=== PATIENT | female | born 1985 | race Hispanic/Latino ===

== ENCOUNTER 2018-09-02 00:03 | Emergency (ER) | payer SELFPAY ==
[2018-09-02] MEDS ORDERED: HYDROCODONE/APAP 10/325 TAB ONE (00:57)
--- NOTE | 2018-09-02 01:07 | ER ---
Nurse's Notes [facility] Name: Lore Singh Age: 32 yrs Sex: Female : 1985 Arrival Date: 09/02/2018 Time: 00:06 Bed 14 Private MD: Diagnosis: Fall due to bumping against object;Sprain of unspecified part of right wrist and hand Presentation: 09/02 00:17 Presenting complaint: Patient states: I accidentally tripped off while we are moving rr5 things, then I hold up my right hand on the ground. Transition of care: patient was not received from another setting of care. Onset of symptoms was September 02, 2018. Risk Assessment: Do you want to hurt yourself or someone else? Patient reports no desire to harm self or others. Initial Sepsis Screen: Does the patient meet any 2 criteria? No. Patient's initial sepsis screen is negative. Does the patient have a suspected source of infection? No. Patient's initial sepsis screen is negative. Note limited movement on her right hand and wrist. positive mild swelling at right palm. Care prior to arrival: elevation. 00:17 Method Of Arrival: Ambulatory rr5 00:17 Acuity: PRASHANTH 3 rr5 Triage Assessment: 00:17 General: Appears in no apparent distress. uncomfortable, Behavior is calm, cooperative, rr5 appropriate for age. Injury Description: swelling right palm due to fall. 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 - Social history:: Smoking status: Patient uses tobacco products, smokes one-half pack cigarettes per day. - Family history:: not pertinent. - Ebola Screening: : Patient negative for fever greater than or equal to 101.5 degrees Fahrenheit, and additional compatible Ebola Virus Disease symptoms Patient denies exposure to infectious person Patient denies travel to an Ebola-affected area in the 21 days before illness onset. Screenin:18 Abuse screen: Denies threats or abuse. Denies injuries from another. Nutritional rr5 screening: No deficits noted. Tuberculosis screening: No symptoms or risk factors identified. Fall Risk Fall in past 12 months (25 points). Total Morrison Fall Scale indicates Low Risk Score (25-44 pts). Fall prevention measures have been instituted. Side Rails Up X 2 Frequent Obs/Assesments occuring As available Patient and Family Educated on Fall Prevention Program and strategies. Assessment: 00:17 General: Appears in no apparent distress. uncomfortable, Behavior is calm, cooperative, rr5 appropriate for age. Pain: Complains of pain in right hand Pain does not radiate. Pain currently is 6 out of 10 on a pain scale. Quality of pain is described as aching, Pain began suddenly, Is intermittent. Neuro: Level of Consciousness is awake, alert, obeys commands, Oriented to person, place, time, situation, Appropriate for age. Cardiovascular: Capillary refill < 3 seconds Patient's skin is warm and dry. Respiratory: Airway is patent Respiratory effort is even, unlabored, Respiratory pattern is regular, symmetrical. GI: No signs and/or symptoms were reported involving the gastrointestinal system. : No signs and/or symptoms were reported regarding the genitourinary system. EENT: No signs and/or symptoms were reported regarding the EENT system. Derm: Skin is intact, Skin temperature is warm. Musculoskeletal: Capillary refill < 3 seconds, Range of motion: limited in right hand and wrist Swelling present in right palm. 00:35 Reassessment: Patient appears in no apparent distress at this time. Patient is alert, rr5 oriented x 3, equal unlabored respirations, skin warm/dry/pink. ice compress aaplied. 01:20 Reassessment: Patient appears in no apparent distress at this time. Patient is alert, rr5 oriented x 3, equal unlabored respirations, skin warm/dry/pink. discharge instruction and prescription given and explained without complaints made. Vital Signs: 00:17 BP 118 / 73; Pulse 88; Resp 17; Temp 98.3; Pulse Ox 99% ; Weight 63.5 kg; Height 5 ft. rr5 7 in. (170.18 cm); Pain 6/10; 00:17 Body Mass Index 21.93 (63.50 kg, 170.18 cm) rr5 ED Course: 00:06 Patient arrived in ED. am2 00:11 Tyler Magdaleno MD is Attending Physician. gisella 00:17 Patel York, RN is Primary Nurse. rr5 00:17 Arm band placed on left wrist. rr5 00:18 Patient has correct armband on for positive identification. Bed in low position. Call rr5 light in reach. Side rails up X 1. Pulse ox on. NIBP on. 00:23 Triage completed. rr5 00:47 X-ray completed. Portable x-ray completed in exam room. Patient tolerated procedure kw well. 00:49 Wrist Right 3 View XRAY In Process Unspecified. EDMS 00:55 Urine Culture Sent. rr5 01:06 Yuan Dueñas MD is Referral Physician. gisella 01:15 Velcro wrist splint applied to right wrist. rr5 01:15 No provider procedures requiring assistance completed. Patient did not have IV access rr5 during this emergency room visit. Administered Medications: 00:50 Drug: [place] 10 mg-325 mg 1 tabs Route: PO; rr5 Outcome: 01:06 Discharge ordered by . gisella 01:20 Discharged to home ambulatory. rr5 01:20 Condition: stable 01:20 Discharge instructions given to patient, Instructed on discharge instructions, follow up and referral plans. medication usage, Demonstrated understanding of instructions, follow-up care, medications, Prescriptions given X 2. 01:21 Patient left the ED. rr5 Signatures: Dispatcher [employer] [facility] Tyler Magdaleno MD MD cha Whitley, Kimberlee kw Moreno, Amanda am2 Roque, Raymond, RN RN rr5
--- NOTE | 2018-09-02 01:08 | EDPHYS ---
Physician Documentation [facility] Name: Lore Singh Age: 32 yrs Sex: Female : 1985 Arrival Date: 09/02/2018 Time: 00:06 Bed 14 Private MD: TANISHA Physician Tyler Magdaleno HPI: 09/02 00:17 This 32 yrs old Female presents to ER via Unassigned with complaints of Hand gisella Injury, Wrist Pain. 00:17 The patient or guardian reports decreased range of motion, injury, pain. The complaints gisella affect the right hand diffusely. Onset: The symptoms/episode began/occurred just prior to arrival. 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 - Social history:: Smoking status: Patient uses tobacco products, smokes one-half pack cigarettes per day. - Family history:: not pertinent. - Ebola Screening: : Patient negative for fever greater than or equal to 101.5 degrees Fahrenheit, and additional compatible Ebola Virus Disease symptoms Patient denies exposure to infectious person Patient denies travel to an Ebola-affected area in the 21 days before illness onset. ROS: 00:21 Constitutional: Negative for fever, chills, and weight loss, Eyes: Negative for injury, gisella pain, redness, and discharge, ENT: Negative for injury, pain, and discharge, Neck: Negative for injury, pain, and swelling, Cardiovascular: Negative for chest pain, palpitations, and edema, Respiratory: Negative for shortness of breath, cough, wheezing, and pleuritic chest pain, Abdomen/GI: Negative for abdominal pain, nausea, vomiting, diarrhea, and constipation, Back: Negative for injury and pain, : Negative for injury, bleeding, discharge, and swelling, Skin: Negative for injury, rash, and discoloration, Neuro: Negative for headache, weakness, numbness, tingling, and seizure, Psych: Negative for depression, anxiety, suicide ideation, homicidal ideation, and hallucinations, Allergy/Immunology: Negative for hives, rash, and allergies, Endocrine: Negative for neck swelling, polydipsia, polyuria, polyphagia, and marked weight changes, Hematologic/Lymphatic: Negative for swollen nodes, abnormal bleeding, and unusual bruising. 00:21 MS/extremity: Positive for decreased range of motion, pain, tenderness, of the medial aspect of right hand, dorsal aspect of right wrist, palmar aspect of proximal phalanx of right thumb and Right first web space. Exam: 00:21 Constitutional: This is a well developed, well nourished patient who is awake, alert, gisella and in no acute distress. Head/Face: Normocephalic, atraumatic. Eyes: Pupils equal round and reactive to light, extra-ocular motions intact. Lids and lashes normal. Conjunctiva and sclera are non-icteric and not injected. Cornea within normal limits. Periorbital areas with no swelling, redness, or edema. ENT: Nares patent. No nasal discharge, no septal abnormalities noted. Tympanic membranes are normal and external auditory canals are clear. Oropharynx with no redness, swelling, or masses, exudates, or evidence of obstruction, uvula midline. Mucous membranes moist. Neck: Trachea midline, no thyromegaly or masses palpated, and no cervical lymphadenopathy. Supple, full range of motion without nuchal rigidity, or vertebral point tenderness. No Meningismus. Chest/axilla: Normal chest wall appearance and motion. Nontender with no deformity. No lesions are appreciated. Cardiovascular: Regular rate and rhythm with a normal S1 and S2. No gallops, murmurs, or rubs. Normal PMI, no JVD. No pulse deficits. Respiratory: Lungs have equal breath sounds bilaterally, clear to auscultation and percussion. No rales, rhonchi or wheezes noted. No increased work of breathing, no retractions or nasal flaring. Abdomen/GI: Soft, non-tender, with normal bowel sounds. No distension or tympany. No guarding or rebound. No evidence of tenderness throughout. Back: No spinal tenderness. No costovertebral tenderness. Full range of motion. Skin: Warm, dry with normal turgor. Normal color with no rashes, no lesions, and no evidence of cellulitis. Neuro: Awake and alert, GCS 15, oriented to person, place, time, and situation. Cranial nerves II-XII grossly intact. Motor strength 5/5 in all extremities. Sensory grossly intact. Cerebellar exam normal. Normal gait. Psych: Awake, alert, with orientation to person, place and time. Behavior, mood, and affect are within normal limits. 00:21 Musculoskeletal/extremity: ROM: limited active range of motion, limited passive range of motion, Circulation is intact in all extremities. Compartment Syndrome exam of affected extremity: is normal. DVT Exam: No signs of deep vein thrombosis. no pain, no swelling, no tenderness, negative Homans' sign noted on exam, no appreciated bluish discoloration, no erythema, no increased warmth. Vital Signs: 00:17 BP 118 / 73; Pulse 88; Resp 17; Temp 98.3; Pulse Ox 99% ; Weight 63.5 kg; Height 5 ft. rr5 7 in. (170.18 cm); Pain 6/10; 00:17 Body Mass Index 21.93 (63.50 kg, 170.18 cm) rr5 MDM: 00:11 Patient medically screened. [facility] 00:21 Data reviewed: vital signs, nurses notes, lab test result(s), radiologic studies. [facility] 09/02 00:23 Order name: Urine Culture [facility] 09/02 01:09 Order name: Urine Dipstick--Ancillary (enter results) [facility] 09/02 00:17 Order name: Wrist Right 3 View XRAY [facility] 09/02 01:09 Order name: Urine --Ancillary (enter results) [facility] 09/02 01:10 Order name: Urine Dipstick-Ancillary [facility] 09/02 00:17 Order name: Ice pack; Complete Time: 00:47 [facility] 09/02 00:17 Order name: Splint; Complete Time: 01:15 [facility] 09/02 00:23 Order name: Urine Dipstick-Ancillary (obtain specimen); Complete Time: 00:46 [facility] 09/02 00:23 Order name: Urine Test (obtain specimen); Complete Time: 00:46 [facility] Administered Medications: 00:50 Drug: [place] 10 mg-325 mg 1 tabs Route: PO; rr5 Disposition: 09/02/18 01:06 Discharged to Home. Impression: Fall due to bumping against object, Sprain of unspecified part of right wrist and hand. - Condition is Stable. - Discharge Instructions: Hand Contusion, Wrist Pain, Wrist Splint, Wrist Splint, [id number]-ok-[id number], Hand Contusion, [id number]-ac-[id number], Wrist Pain, [id number]-gi-[id number], Fall Prevention in the Home, Nrfn-al-Melu, Wrist Sprain. - Prescriptions for Ibuprofen 600 mg Oral Tablet - take 1 tablet by ORAL route every 8 hours As needed take with food; 21 tablet. Tylenol- Codeine #3 300-30 mg Oral Tablet - take 2 tablets by ORAL route every 6 hours As needed; 24 tablet. - Medication Reconciliation Form, Thank You Letter, Antibiotic Education, Prescription Opioid Use form. - Follow up: Private Physician; When: 2 - 3 days; Reason: Recheck today's complaints, Continuance of care, Re-evaluation by your physician. Follow up: Yuan Dueñas; When: 2 - 3 days; Reason: Recheck today's complaints, Re-evaluation by your physician. - Problem is new. - Symptoms have improved. Signatures: Dispatcher [employer] [facility] Tyler Magdaleno MD MD cha Roque, Raymond RN RN rr5 Corrections: (The following items were deleted from the chart) 00:49 00:18 Hand Right 3 View+RAD.RAD.BRZ ordered. [facility] 01:21 01:06 09/02/2018 01:06 Discharged to Home. Impression: Fall due to bumping against rr5 object; Sprain of unspecified part of right wrist and hand. Condition is Stable. Discharge Instructions: Hand Contusion, Wrist Pain, Wrist Splint, Wrist Splint, [id number]-pi-Qtmk, Hand Contusion, Uesw-lv-Drut, Wrist Pain, Kjqg-ng-Wcoq, Fall Prevention in the Home, Rffg-uz-Gfqx, Wrist Sprain. Prescriptions for Ibuprofen 600 mg Oral Tablet - take 1 tablet by ORAL route every 8 hours As needed take with food; 21 tablet, Tylenol-Codeine #3 300-30 mg Oral Tablet - take 2 tablets by ORAL route every 6 hours As needed; 24 tablet. and Forms are Medication Reconciliation Form, Thank You Letter, Antibiotic Education, Prescription Opioid Use. Follow up: Private Physician; When: 2 - 3 days; Reason: Recheck today's complaints, Continuance of care, Re-evaluation by your physician. Follow up: Yuan Dueñas; When: 2 - 3 days; Reason: Recheck today's complaints, Re-evaluation by your physician. Problem is new. Symptoms have improved. gisella
[2018-09-02 01:25] LABS: Urine Blood TRACE (NEG); Urine Glucose NEGATIVE (NEG); Urine Protein NEGATIVE (NEG)
--- NOTE | 2018-09-02 08:36 | RAD REPORT ---
EXAM DESCRIPTION: RAD - Wrist Right 3 View - 09/02/2018 12:52 am CLINICAL HISTORY: Right wrist pain status post injury FINDINGS: No fracture or dislocation is seen. If the patient continues to have symptoms to suggest a n occult fracture then a followup plain film series in 7 days would be recommended.
== END 2018-09-02 01:21 | disposition home or self-care (01) ==
LOC: ER 00:03
DX: S63.91XA Sprain of unspecified part of right wrist and hand, initial encounter (principal); W18.00XA Striking against unspecified object with subsequent fall, initial encounter; Y93.01 Activity, walking, marching and hiking; Y92.9 Unspecified place or not applicable; F17.210 Nicotine dependence, cigarettes, uncomplicated
CPT/HCPCS: 81003; 81025; 87086; 87088; 99284

== ENCOUNTER 2021-08-17 10:43 | Emergency (ER) | payer SELFPAY ==
--- OUTSIDE RECORDS SUMMARY | 2021-08-17 10:46 | XMS REPORT | Continuity of Care Document ---
:[address] [facility] t Address [address] [place] [address] Care Team Providers Name Role Phone Pcp, Does Not Have A Primary Care Physician Tery Luna Attending Clinician Trey BRAR Attending Clinician Unavailable Stephanie Kirby Attending Clinician Unavailable Trey WILKES Attending Clinician Unavailable BOB CHESTER Attending Clinician Unavailable DR Seven PAPPAS Attending Clinician Unavailable ROXI AGUIRRE Admitting Clinician Unavailable DR Seven PAPPAS Admitting Clinician Unavailable Payers Payer Name Policy Type Policy Number Effective Date Expiration Date S ource TP68 WOMEN'S [id number] 2019 00:00:00 HEALTH PROGRAM Advance Directives Directive Decision Effective Date Termination Date Comments Sour ce Yes N/A [facility] Problems Condition Condition Condition Status Onset Resolution Last Treating Co mments Source Name Details Category Date Date Treatment Clinician Date Other Other Disease Active Univers general general 9-24 ity of counseling [place] and advice 00 Me dical for for Branch contracept contracept ray ray management management Encounter Encounter [id number] Active 2020-09-27 for for 3-05 07:14:29 observatio observatio 00:00: n for n for 00 other other suspected suspected diseases diseases and and conditions conditions ruled out ruled out (Z03.89)On set: 27-Sep-2020 Surveillan Surveillan Disease Active Overview : Univers ce of ce of 08-11 Formattin ity of previously previously 00:00: g of this [place] prescribed prescribed 00 note Me dical contracept contracept might be Branch ray method ray method different from the original. ICD10 Diagnosis Term [employer] Specialist Utility Screening Screening Disease Active Overview: Univers for STD for STD 08-11 Formattin ity o f (sexually (sexually 00:00: g of this [place] transmitte transmitte 00 note Me dical d disease) d disease) might be Branch different from the original. ICD10 Diagnosis Term [employer] Utility History of History of Disease Active U will tubal tubal 08-11 ity of ligation ligation 00:00: [address] Generalize Generalize Disease Active U nivers d anxiety d anxiety 08-11 ity of disorder disorder 00:00: [address] Dysmenorrh Dysmenorrh Disease Active U will ea ea 08-11 ity of 00:00: [address] Allergies, Adverse Reactions, Alerts Allergy Allergy Status Severity Reaction(s) Onset Inactive Treating Comm ents Source Name Type Date Date Clinician NO KNOWN Drug Active Univers ALLERGIE Class ity of S [facility] Social History Social Habit Start Date Stop Date Quantity Comments Source History [facility] o f Alcohol [facility] [place] [facility] o f Alcohol Std [place] Medical Drinks Branch History [facility] University o f Alcohol Binge [place] Medic al [place] History of Smoker University of tobacco use [facility] Exposure to Not sure University of SARS-CoV-2 [facility] (event) [place] Alcohol intake 2021-04-18 2021-04-18 Current drinker of Un iversity of 00:00:00 00:00:00 alcohol (finding) [facility] Alcohol Comment 2014-08-09 2014-08-09 occasionally Univers ity of 00:00:00 00:00:00 [facility] Cigarettes smoked 2014-08-09 2014-08-09 Univers ity of current (pack per 00:00:00 00:00:00 [facility] ) - Reported Branch Tobacco use and 2014-08-09 2014-08-09 Never used Universit y of exposure 00:00:00 00:00:00 [facility] Sex Assigned At [birth year] Universit y of 00:00:00 00:00:00 [facility] Smoking Status Start Date Stop Date Source Tobacco smoking consumption [facility] Current every day smoker 2014-08-09 00:00:00 Uni versity of [facility] Medications Ordered Filled Start Stop Current Ordering Indication Dosage Frequency Signature Comments Components Source Medication Medication Date Date Medication? Clinician (SIG) Name Name ALPRAZolam 2020- No .5mg Take 0.5 Un silvia (XANAX) 0.5 9-24 09-24 mg by ity of mg tablet 09:22: 00:00 mouth as Roberto as 45 :00 needed. [facility] Branch DiphenhydrA Yes [id number] 50mg Diphenhydr MINE* 10-01 [id number] AMINE*; 50 08:47: mg PO/By 00 mouth for difficulyt sleeping Please take ONE (1) tablet by mouth at bedtime IF NEEDED for difficulty sleeping.D ischarge Medication SupplyStar t: 01-Oct-2020 Ordered: 01-Oct-2020 Lety Kirby HydrOXYzine Yes [id number] 25mg HydrOXYzin * - 200605 e*; 25 mg 15:51: PO/By 00 mouth for anxiety Please take ONE (1) tablet by mouth TWICE DAILY for anxiety IF NEEDED. If no anxiety, do not take.Disch arge Medication SupplyStar t: 30-Sep-2020 Ordered: 30-Sep-2020 Lety Kirby RisperiDONE Yes [id number] 1mg RisperiDON * 09-30 804745 E*; 1 mg 15:50: PO/By 00 mouth for mood stablizati on/clear thinking Please take ONE (1) tablet by mouth in the morning, and take ONE (1) tablet by mouth at bedtime.Gissell schultz Medication SupplyStar t: 30-Sep-2020 Ordered: 30-Sep-2020 Lety Kirby nt Contact 2020- Yes [id number] 15ml Contact Lens 3-07 [id number] Lens Solution 17:26: Solution; 00 Fill soufle cup or contact lens case with contact lens solution and, using clean hands, submerge contact lenses in solution for storage until next use. 15 ml Q1H PRN for storage of contact lensesStar t: 29-Sep-2020 Ordered: 29-Sep-2020 Kiya Garzon ntent RisperiDONE Yes [id number] .5mg RisperiDON NTE 4 mg 3-05 [id number] E; 0.5 mg PRN 07:19: PO PRN Risperido 00 q6hr for ne in 24 ___moderat hr period e agitation NTE 4 mg PRN Risperidon e in 24 hr period RoutineSta rt: 27-Sep-2020 Ordered: 27-Sep-2020 Stephanie Rodriguez Comments: NTE 4 mg PRN Risperidon e in 24 hr period Ibuprofen Yes [id number] 400mg Ibuprofen; NTE 2 400 3-05 [id number] 400 mg PO mg in 24 06:38: PRN q4hr hours 00 for Pain NTE 2400 mg in 24 hours RoutineSta rt: 27-Sep-2020 Ordered: 27-Sep-2020 Stephanie Rodriguez Comments: NTE 2400 mg in 24 hours Maalox Yes [id number] 30ml Maalox; 30 NTE 120ml 3-05 [id number] ml PO PRN in 24 06:38: q6hr for hours 00 GI upset NTE 120ml in 24 hours RoutineSta rt: 27-Sep-2020 Ordered: 27-Sep-2020 Stephanie Rodriguez Comments: NTE 120ml in 24 hours Milk of 2020-0 Yes [id number] 30ml Milk of NTE 120 Magnesia 3-05 [id number] Magnesia; mL in 24 06:38: 30 ml PO hours 00 PRN q4hr for Constipati on NTE 120 mL in 24 hours RoutineSta rt: 27-Sep-2020 Ordered: 27-Sep-2020 Stephanie Rodriguez Comments: NTE 120 mL in 24 hours Flu Vaccine Yes [id number] .5ml Flu This - ADULT 3-05 [id number] Vaccine - medicatio 06:37: ADULT; 0.5 n is to 00 ml IM be Daily for administe Flu red under prevention consent This of the medication patient is to be and is administer ONLY ed under available consent of between the April through and is September ONLY (during available the flu between season). April through September (during the flu season). RoutineSta rt: 27-Sep-2020 Ordered: 27-Sep-2020 Stephanie Rodriguez Comments: This medication is to be administer ed under consent of the patient and is ONLY available between April through September (during the flu season). Versed No [id number] 0 Versed 5 mg/mL 3-05 [id number] mg/mL injectable 04:31: injectable solution 48 solution; intramuscu lar onceQuanti ty: 0 Refills: 0Ordered: 27-Sep-2020 Bella Meneses eneric Substituti on Allowed Haldol 5 No [id number] 0 Haldol 5 mg/mL 3-05 [id number] mg/mL injectable 04:31: injectable solution 38 solution; intramuscu lar onceQuanti ty: 0 Refills: 0Ordered: 27-Sep-2020 Bella Meneses eneric Substituti on Allowed traMADOL 50 2017-07- No 50mg Take 1 Uni vers mg tablet 04-18 tablet by ity of 00:00: 00:00 mouth [place] 00 :00 every 6 Medical (six) Branch hours as needed for Pain (scale 4-6). amoxicillin 2020- No 1{tbl} Take 1 Tab Univers -clavulanat 01-22 by mouth ity of e 00:00: 00:00 every 12 [place] (AUGMENTIN) 00 :00 (twelve) Medi meera 875-125 mg hours. Branch per tablet codeine-gua 2020- No 5mL Take 5 mL Univers ifenesin 01-22 by mouth ity of (CHERATUSSI 00:00: 00:00 every 6 [place] AC) 00 :00 (six) Medical 10-100 mg/5 hours as Bran ch mL solution needed for Cough. Immunizations Ordered Filled Immunization Date Status Comments Sourc e Immunization Name Name SARS-COV-2 COVID-19 2021-03-26 [facility] 00:00:00 [facility] Td 2018-05-02 Completed [facility] 00:00:00 [facility] TDAP (ADACEL) 2006-08-04 Completed [facility] VACCINE 00:00:00 [facility] Vital Signs Vital Name Observation Time Observation Value Comments Source Systolic blood 2021-04-18 14:21:00 125 mm[Hg] [facility] Diastolic blood 2021-04-18 14:21:00 82 mm[Hg] [facility] Heart rate 2021-04-18 14:21:00 82 /min [facility] Body temperature 2021-04-18 14:21:00 36.39 [facility] Respiratory rate 2021-04-18 14:21:00 18 /min [facility] Body height 2021-04-18 14:21:00 170.2 cm [facility] Body weight 2021-04-18 14:21:00 55.611 kg [facility] BMI 2021-04-18 14:21:00 19.20 kg/m2 [facility] Procedures Procedure Date / Time Performing Clinician Source Performed GC & CHLAMYDIA 2021-04-18 14:40:00 Kimberly Brar [facility] AMPLIFIED [facility] HIV 1/2 AG-AB WITH 2021-04-18 14:40:00 Kimberly Brar [facility] REFLEX [facility] TRICHOMONAS AMPLIFIED 2021-04-18 14:40:00 [facility]QU[facility] 2021-04-18 14:40:[address] [facility] BASED-CP [facility] GALV ONLY - SYPHILIS 2021-04-18 14:40:00 [facility] Plan of Care Planned Activity Planned Date Details Comments Source Diagnostic Test Pending 2020-10-01 10:33:00 Discharge Patient [code = DischargePatient] Diagnostic Test Pending 2020-09-27 12:07:00 Management of Emotions [code = ManagementofEmotions] Diagnostic Test Pending 2020-09-27 12:07:00 Mgmt of Mental Illness (On Unit) [code = MgmtofMentalIllness(OnUni t)] Diagnostic Test Pending 2020-09-27 12:07:00 Spirituality [code = Spirituality] Diagnostic Test Pending 2020-09-27 12:07:00 Therapeutic Recreation [code = TherapeuticRecreation] Diagnostic Test Pending 2020-09-27 06:37:00 Vital Signs - Routine [code = VitalSigns-Routine] Diagnostic Test Pending 2020-09-27 06:37:00 Regular Diet [code = RegularDiet] Diagnostic Test Pending 2020-09-27 06:37:00 Assess and involve in group therapy [code = Assessandinvolveingroupth erapy] Encounters Start End Encounter Admission Attending Care Care Encounter Source Date/Time Date/Time Type Type Clinicians Facility Department ID 2021-04-18 2021-04-18 [id number] [facility] 09:09:54 09:43:40 Visit Kimberly Yang [employer] [id number] ity [facility] [id number] Roberto as MATERNAL [id number] Med ical & CHILD [address] [place] [address] 2021-04-18 2021-04-18 Outpatient R SUE [facility] [id number] [facility] 09:00:00 09:00:00 KIMBERLY orozco [facility] 2020-09-27 2020-10-01 Inpatient Kirby, 1 [id number] Isabella 04:16:00 11:59:00 Lety Amezcua [address] [facility] 2020-09-26 2020-09-27 Emergency HIEN WILKES [facility] MED [id number] Isabella 08:08:00 04:01:00 Health 2020-09-25 2020-09-26 Emergency [facility] MED [id number] Zeyad 23:59:00 06:50:00 Health 2019-09-20 2019-09-20 Emergency E NEMO, [facility] [address] [facility] 03:22:00 14:53:00 TAMARA 2019-09-20 2019-09-20 Emergency E MIAN, [facility] [id number] Darya 00:42:00 01:56:00 [facility] Results Test Description Test Time Test Comments Results Result Comments Source GALV ONLY - SYPHILIS IGG/IGM 2021-04-19 18:04:20 Test Item Value Reference Range Interpretation Comme nts Syphilis IgG/IgM (test code = Non-reactive Non-reactive 28384-4) NABIL (test code = NABIL) Non-reactive - No serologic evidence of T. pallidum infection. Cannot exclude incubating or early syphilis. Submit a second specimen in 2-4 weeks if syphilis is clinically suspected. Equivocal - Further testing to follow. Reactive - Further testing to follow. Lab Interpretation (test code = Normal 93516-0) [facility]-AB WITH [id number] 03:24:47 Test Item Value Reference Range Interpretation Comments HIV Negative Negative Semi-quantitative (test code = 56899-5) NABIL (test code = Non-reactive for HIV-1 NABIL) antigen and HIV-1/HIV-2 antibodies. ?No laboratory evidence of HIV infection. ?Repeat in 2-4 weeks if acute HIV infection is suspected. [facility] [id number] 05:19:00 Test Item Value Reference Interpretation Comments Range Amphetamine Positive Amphetamine Methamphetmine test includes 142246 (test code = Amphetam ine and AmphetamineMethamphe Methamp hetamine cevbx358118) . Barbiturate (457615) Negative (test code = Barbiturate(996619)) Benzodiazepines Positive (482086) (test code = Benzodiazepines(7148 32)) Cocaine Metabolite Negative (581529) (test code = CocaineMetabolite(71 4857)) Phencyclidine Negative (866471) (test code = Phencyclidine(234253 )) Cannabinoid (410611) Positive (test code = Cannabinoid(178108)) Opiates (557944) Negative Opiate test (test code = includes Opiates(082344)) Codeine and Morphine only. Drug Screen Comment NOTE : .This analysis (test code = is performed by DrugScreenComment) immunoassay. Positivefindings are unconfirmed analytical test results; ifresults do not support expected clinical finding,confirmation by an alternate methodology is recommended.Patient metabolic variables, specific drug chemistry, andspecimen characteristics can affect test outcome.Technical consultation is available [email or web address], or call toll free [phone]. [id number] 15:01:00 Test Item Value Reference Range Interpretation Comments Specific [place] (test 1.027 code = SpecificGravity) pH (test code = pH) 6.0 Urine Color (test code Yellow = UrineColor) Appearance (test code = Cloudy Appearance) WBC Esterase (test code Trace = WBCEsterase) Protein,Urine (test Trace code = Protein,Urine) Glucose, Urine (test Negative code = Glucose,Urine) Ketones (test code = Negative Ketones) Occult Blood (test code Negative = OccultBlood) Bilirubin, Urine (test Negative code = Bilirubin,Urine) Urobilinogen (test code 1.0 mg/dL = Urobilinogen) Nitrite, Urine (test Negative code = Nitrite,Urine) Microscopic Exam (test See below: Microscopic code = MicroscopicExam) was indicated and was performed. WBC/HPF (test code = 0-5 WBC/HPF) RBC/HPF (test code = 3-10 RBC/HPF) Epithelial Cells >10 (non-renal) (test code = EpithelialCells(non-r enal)) Crystal Type (test Calcium Oxalate code = CrystalType) Crystals (test code = Present Crystals) Mucus Threads (test Present code = MucusThreads) Bacteria (test code = Few Bacteria) COMPREHENSIVE METABOLIC [id number] 02:23:00 Test Item Value Reference Range Interpretation Comments GLUCOSE (test code = 108 mg/dL 75-100 H 06D) SODIUM (test code = 138 mmol/L 136-145 01A) POTASSIUM (test code = 3.5 mmol/L 3.6-5.1 L 01B) CHLORIDE (test code = 105 mmol/L 98-107 04A) CO2 (test code = 02A) 29 mmol/L 22-32 ANION GAP (test code = 7.5 mmol/L ANG) BUN (test code = 05D) 8 mg/dL 7-18 CREATININE (test code 0.5 mg/dL 0.4-1.1 = 03E) GFR (test code = GFR) 128 mL/min/1.73m\S\2 >=90 GFR 149 mL/min/1.73m\S\2 >=90 (test code = GFRAA) EGFR (test code = eGFR BY CKD-EPI EGFR) CALCULATION IS NOT RECOMMENDED FOR PATIENTS UNDER 18 YEARS OF AGE. BUN/CREA (test code = 16 12-20 BCR) CALCIUM (test code = 8.2 mg/dL 8.3-9.5 L 09D) BILI TOTAL (test code 0.5 mg/dL 0.2-1.0 = 11A) PROTEIN (test code = 7.3 g/dL 6.4-8.2 07D) ALBUMIN (test code = 3.6 g/dL 3.5-4.8 08D) GLOBULIN (test code = 3.7 g/dL 1.5-3.8 GLB) ALB/GLOB (test code = 1.0 1.0-2.6 AGRR) ALK PHOS (test code = 55 IU/L 42-121 35A) AST (test code = 30A) 13 IU/L <=42 ALT (test code = 31A) 20 IU/L <=78 CBC (INCLUDES AUTOMATED DIFFERENTIAL)2019-09-20 02:08:00 Test Item Value Reference Range Interpretation Comments WBC (test code = WBC) 13.4 10\S\3/uL 4.5-11.0 H RBC (test code = RBC) 4.02 10\S\6/uL 4.30-5.70 L HGB (test code = HBG) 12.8 g/dL 12.0-15.5 HCT (test code = HCT) 39.3 % 35.0-44.0 MCV (test code = MCV) 97.8 fL 81.0-99.0 MCH (test code = MCH) 31.8 pg 27.0-31.0 H MCHC (test code = MCHC) 32.6 g/dL 32.0-36.0 RDW (test code = RDW) 12.7 % 11.5-14.5 PLT (test code = PLT) 266 10\S\3/uL 130-400 MPV (test code = MPV) 11.1 fL 9.4-12.4 NEUTROP # (test code = NE#) 11.0 10\S\3/uL 1.6-8.0 H LYMPH # (test code = LY#) 1.9 10\S\3/uL 1.1-3.5 MONOCYTE # (test code = MO#) 0.4 10\S\3/uL 0.0-1.1 EOSINOPH # (test code = EO#) 0.0 10\S\3/uL 0.0-0.7 BASOPHIL # (test code = BA#) 0.1 10\S\3/uL 0.0-0.3 IG # (test code = IG#) 0.05 10\S\3/uL 0.00-0.06 NRBC # (test code = NRBC#) 0.00 10\S\3/uL 0.00-0.01 NEUTROPH % (test code = NE%) 82.1 % 35.0-73.0 H LYMPH % (test code = LY%) 13.8 % 20.0-55.0 L MONO % (test code = MO%) 3.1 % 2.5-10.0 EOSINOPH % (test code = EO%) 0.2 % 0.0-5.0 BASOPHIL % (test code = BA%) 0.4 % 0.0-2.0 IG % (test code = IG%) 0.4 % 0.0-0.8 NRBC% (test code = NRBC%) 0.0 % 0.0-0.2 MANDIFF (test code = MDIFF) NO NO RBC MORPH (test code = RBCMOR) NORMAL
--- NOTE | 2021-08-17 11:59 | EDPHYS ---
Physician Documentation [facility] Name: Lore Singh Age: 35 yrs Sex: Female : 1985 Arrival Date: 08/17/2021 Time: 10:45 Bed 14 Private MD: ED Physician Wisam Guerin HPI: 08/17 11:57 This 35 yrs old Female presents to ER via Ambulatory with complaints of Ear jmm Pain, Drainage From Ear. 11:57 The patient presents with pain. Onset: The symptoms/episode began/occurred gradually. jmm Modifying factors: The symptoms are alleviated by nothing, the symptoms are aggravated by nothing. Associated signs and symptoms: Pertinent negatives: fever, sinus trouble, sore throat. It is unknown whether or not the patient has had similar symptoms in the past. 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 - Social history:: Smoking status: Patient reports the use of cigarette tobacco products, smokes one pack cigarettes per day. ROS: 11:57 Constitutional: Negative for fever, chills, and weight loss, Cardiovascular: Negative jmm for chest pain, palpitations, and edema, Respiratory: Negative for shortness of breath, cough, wheezing, and pleuritic chest pain. 11:57 ENT: Positive for ear pain. 11:57 All other systems are negative. Exam: 11:57 Constitutional: This is a well developed, well nourished patient who is awake, alert, jmm and in no acute distress. Head/Face: atraumatic. Eyes: EOMI, no conjunctival erythema appreciated 11:57 Neck: Trachea midline, Supple Chest/axilla: Normal chest wall appearance and motion. Cardiovascular: Regular rate and rhythm. No edema appreciated Respiratory: Normal respirations, no respiratory distress appreciated Abdomen/GI: Non distended, soft Back: Normal ROM Skin: General appearance color normal MS/ Extremity: Moves all extremities, no obvious deformities appreciated, no edema noted to the lower extremities Neuro: Awake and alert, normal gait Psych: Behavior is normal, Mood is normal, Patient is cooperative and pleasant 11:57 ENT: TM's: erythema, that is moderate, on the right. Vital Signs: 11:10 BP 123 / 81; Pulse 86; Resp 18; Temp 98.2; Pulse Ox 100% ; Weight 63.5 kg; Height 5 ft. benoit 7 in. (170.18 cm); 11:10 Body Mass Index 21.93 (63.50 kg, 170.18 cm) benoit MDM: 11:48 Patient medically screened. [facility] 11:57 Data reviewed: vital signs, nurses notes. Counseling: I had a detailed discussion with donny the patient and/or guardian regarding: the historical points, exam findings, and any diagnostic results supporting the discharge/admit diagnosis, the need for outpatient follow up, to return to the emergency department if symptoms worsen or persist or if there are any questions or concerns that arise at home. Administered Medications: No medications were administered Disposition: 15:25 Co-signature as Attending Physician, Wisam Guerin MD I agree with the assessment and rn plan of care. Attestation: The patient's history, exam findings, diagnostics, and a summary of any interventions or procedures was reviewed in detail with Fahad SCHAEFFER. Disposition Summary: 08/17/21 11:58 Discharge Ordered Location: Home [facility] Condition: Stable [facility] Diagnosis - Acute serous otitis media, right ear [facility] Followup: [facility] - With: Private Physician - When: 2 - 3 days - Reason: Recheck today's complaints, Continuance of care, Re-evaluation by your physician Discharge Instructions: - Discharge Summary Sheet [facility] - Otitis Media, Adult [facility] Forms: - Medication Reconciliation Form [facility] - Thank You Letter [facility] - Antibiotic Education [facility] - Prescription Opioid Use [facility] Prescriptions: - Augmentin 875-125 mg Oral Tablet - take 1 tablet by ORAL route every 12 hours for 10 days; 20 tablet; Refills: 0, [facility] Product Selection Permitted Signatures: Fahad Arellano PA PA jm Wisam Guerin MD MD rn Au-StagerMelanie RN RN
--- NOTE | 2021-08-17 11:59 | ER ---
Nurse's Notes [facility] Name: Lore Singh Age: 35 yrs Sex: Female : 1985 Arrival Date: 08/17/2021 Time: 10:45 Bed 14 Private MD: Diagnosis: Acute serous otitis media, right ear Presentation: 08/17 11:10 Chief complaint: Patient states: bilateral ear pain and drainage. Coronavirus screen: Vaccine status: Patient reports being unvaccinated. Ebola Screen: Patient denies travel to an Ebola-affected area in the 21 days before illness onset. Initial Sepsis Screen: Does the patient meet any 2 criteria? No. Patient's initial sepsis screen is negative. Does the patient have a suspected source of infection? No. Patient's initial sepsis screen is negative. Risk Assessment: Do you want to hurt yourself or someone else? Patient reports no desire to harm self or others. Onset of symptoms was June 2022. 11:10 Method Of Arrival: Ambulatory benoit 11:10 Acuity: PRASHANTH 4 benoit Triage Assessment: 11:25 General: Appears in no apparent distress. well developed, well nourished, Behavior is cb5 calm, cooperative, appropriate for age. Pain: Complains of pain in right ear and left ear. EENT: Reports ayde earache. 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 - Social history:: Smoking status: Patient reports the use of cigarette tobacco products, smokes one pack cigarettes per day. Screenin:28 Abuse screen: Denies threats or abuse. Denies injuries from another. Nutritional cb5 screening: No deficits noted. Tuberculosis screening: No symptoms or risk factors identified. 11:29 Fall Risk None identified. cb5 Assessment: 11:26 General: Appears comfortable, well groomed, well nourished, Behavior is calm, cb5 cooperative, appropriate for age. Pain: Complains of pain in right ear and left ear Pain currently is 4 out of 10 on a pain scale. Neuro: No deficits noted. Level of Consciousness is awake, alert, obeys commands, Oriented to person, place, time, situation, Appropriate for age. Cardiovascular: No deficits noted. Respiratory: No deficits noted. GI: Patient currently denies. : Denies. EENT: No deficits noted. Derm: No deficits noted. Musculoskeletal: No deficits noted. 12:02 General: pt refused discharge vital signs. 5 Vital Signs: 11:10 BP 123 / 81; Pulse 86; Resp 18; Temp 98.2; Pulse Ox 100% ; Weight 63.5 kg; Height 5 ft. benoit 7 in. (170.18 cm); 11:10 Body Mass Index 21.93 (63.50 kg, 170.18 cm) benoit ED Course: 10:45 Patient arrived in ED. as 11:10 Melanie Grigsby, RN is Primary Nurse. benoit 11:12 Triage completed. benoit 11:18 Fahad Arellano PA is PHCP. [facility] 11:18 Wisam Guerin MD is Attending Physician. [facility] 11:26 Arm band placed on right wrist. cb5 11:28 Placed in gown. Bed in low position. Call light in reach. Side rails up X 1. cb5 11:28 No provider procedures requiring assistance completed. cb5 12:03 IV discontinued. cb5 Administered Medications: No medications were administered Outcome: 11:58 Discharge ordered by . [facility] 12:03 Discharged to home ambulatory. cb5 12:03 Condition: stable 12:03 Discharge instructions given to patient. 12:06 Patient left the ED. 5 Signatures: Fahad Arellano PA PA jmm Martinez, Amelia as Melanie Grigsby, RAMIRO RN Rekha Clinton RN RN cb5
[2021-08-17 14:37] VITALS: BP 123/81; TEMP 98.2; O2SAT 100
== END 2021-08-17 12:06 | disposition home or self-care (01) ==
LOC: ER 10:43
DX: H65.01 Acute serous otitis media, right ear (principal); F17.210 Nicotine dependence, cigarettes, uncomplicated
CPT/HCPCS: 99281

== ENCOUNTER → 2023-08-15 | Emergency (ER) | payer SELFPAY ==
[~2023-08-15] MED LIST: CEFTRIAXONE 1000 MG/VIAL ONE; LIDOCAINE 1% MPF 2 ML AMPULE ONE
[2023-08-15 21:11] LABS: Absolute Lymphocytes (CBC) 2.7 K/uL (0.7-4.9); Hematocrit 40.8 % (36.0-45.0); Lymphocytes % 40.9 % (15.3-44.8); MCV 96.9 fL (80-100); MPV 8.6 fL (7.6-11.3); Platelets 273 thou/uL (152-406); RBC Red Blood Cell Count 4.21 M/uL (3.86-4.86)
[2023-08-15 21:26] LABS: Specific Gravity > 1.030 (1.005-1.030)
[2023-08-15 21:27] LABS: Specific Gravity > 1.030 (1.005-1.030); Urine Bacteria 20-50 /HPF (<20); Urine Bilirubin NEGATIVE (Negative); Urine Blood Negative (Negative); Urine Clarity Extremely Turbid (Clear); Urine Color Light-Yellow (Yellow); Urine Glucose NEGATIVE (Negative); Urine Mucus 1+ /HPF (None Seen); Urine Protein TRACE (Negative); Urine Urobilinogen Normal (Normal)
[2023-08-15 21:37] LABS: Albumin 3.5 g/dL (3.4-5.0); Bilirubin Total 0.3 mg/dL (0.2-1.0); Potassium 3.7 mEq/L (3.5-5.1); Protein, Total 7.1 g/dL (6.4-8.2)
--- NOTE | 2023-08-15 21:48 | RAD REPORT ---
EXAM DESCRIPTION: CTAbdomen Pelvis W Contrast - 08/15/2023 9:34 pm CLINICAL HISTORY: lower abdominal pain COMPARISON: No comparisons TECHNIQUE: CT of the abdomen and pelvis was performed. All CT scans are performed using dose optimization technique as appropriate and may include automated exposure control or mA/KV adjustment according to patient size. FINDINGS: Lower chest: No acute abnormality. Liver: No acute abnormality or suspicious lesions. Biliary: No biliary ductal dilatation. Stomach: No significant focal abnormality. Duodenum: No significant focal abnormality. Pancreas: No significant abnormality. Spleen: No significant abnormality. Adrenal: No suspicious lesions. Kidney/ureter: No hydronephrosis. No renal calculi. No ureteral calculi. Retroperitoneum: No retroperitoneal adenopathy. Vascular: No aneurysm. Bowel: No significant focal abnormality. No appendicitis. Moderate stool in the colon. Peritoneum: No ascites or free air. Bladder: Grossly unremarkable. Reproductive: No radiopaque vaginal foreign bodies identified. Tubular structure in the right adnexa noted. Bones: No acute fracture. Other: n/a IMPRESSION: No acute intra-abdominal or pelvic finding. No appendicitis. Tubular structure in the right adnexa could represent hydrosalpinx. Pelvic ultrasound could further e valuate.
--- NOTE | 2023-08-15 22:31 | RAD REPORT ---
EXAM DESCRIPTION: US - Pelvis Complete - 08/15/2023 10:17 pm CLINICAL HISTORY: ABD PAIN COMPARISON: No comparisons FINDINGS: The uterus is normal in size, shape and echotexture. The uterus measures 8.7 x 4.3 x 4.8 c m. 8 mm intramural fibroid. The endometrial stripe measures 10 mm, within normal limits for age. Both ovaries are normal in size, shape and echotexture. The right ovary measures 3.1 x 2 x 1.1 cm wi th volume of 3.7 cc. The left ovary measures 2 x 1.4 x 1.5 cm with volume of 2.3 cc. Tubular curvilinear structure in the right adnexa suspicious for hydrosalpinx. This measures approxim ately 4.5 cm in length and 1.2 cm in maximal thickness. Normal Doppler blood flow was demonstrated to both ovaries. No significant pelvic ascites. IMPRESSION: 1. Tubular structure in the right adnexa most consistent with a hydrosalpinx. The fluid within the suspect hydrosalpinx is simple in appearance. This may be unrelated to the patient's acute presentation. 2. Bilateral ovarian blood flow.
--- NOTE | 2023-08-15 22:41 | EDPHYS ---
Physician Documentation [facility] Name: Lore Singh Age: 37 yrs Sex: Female : 1985 Arrival Date: 08/15/2023 Time: 20:27 Bed 14 Private MD: ED Physician Jesus Spencer HPI: 08/15 22:40 This 37 yrs old Female presents to ER via Ambulatory with complaints of Back ms3 Pain, Pelvic Pain, Pain With Urination. 22:40 37-year-old female with no past medical history presents to the emergency department ms3 for lower abdominal cramping, dysuria that has been ongoing for 1 week. Patient states she urinates frequently with small amounts. Patient states her discomfort is a 4/10. Patient denies any alleviating or inciting factors.. Historical: - Allergies: 20:47 No Known Allergies; pf1 - PMHx: 20:47 None; pf1 - PSHx: 20:47 tubal ligation; pf1 - Immunization history:: Adult Immunizations not up to date, Client reports receiving the 1st dose of the Covid vaccine, Moderna Last tetanus immunization: < 10 years ago Flu vaccine is not up to date. - Social history:: Smoking status: Patient reports the use of cigarette tobacco products, smokes one-half pack cigarettes per day, Patient/guardian denies using alcohol, street drugs. ROS: 22:40 Constitutional: Negative for fever, and chills. Neck: Negative for injury, pain, and ms3 swelling, Cardiovascular: Negative for chest pain, and palpitations. Respiratory: Negative for shortness of breath, cough, wheezing, and pleuritic chest pain, Abdomen/GI: Negative for abdominal pain, nausea, vomiting, diarrhea, and constipation, 22:40 : Positive for urinary frequency, small amounts, burning with urination, vaginal discharge, 22:40 All other systems are negative, Exam: 22:40 Constitutional: This is a well developed, well nourished patient who is awake, alert, ms3 and in no acute distress. Head/Face: Normocephalic, atraumatic. Neck: Trachea midline, no cervical lymphadenopathy. Supple, full range of motion without nuchal rigidity, or vertebral point tenderness. No Meningismus. Chest/axilla: Normal chest wall appearance and motion. Nontender with no deformity. Cardiovascular: Regular rate and rhythm with a normal S1 and S2. No gallops, murmurs, or rubs. Normal PMI, no JVD. No pulse deficits. Respiratory: Lungs have equal breath sounds bilaterally, clear to auscultation and percussion. No rales, rhonchi or wheezes noted. No increased work of breathing, no retractions or nasal flaring. Skin: Warm, dry with normal turgor. Normal color with no rashes, no lesions, and no evidence of cellulitis. MS/ Extremity: Pulses equal, no cyanosis. Neurovascular intact. Full, normal range of motion. 22:40 Abdomen/GI: Inspection: abdomen appears normal, Bowel sounds: normal, Palpation: mild abdominal tenderness, in the right lower quadrant and left lower quadrant, 22:40 : CVA tenderness, is absent, Pelvic Exam: External exam: is normal, Speculum exam: no cervicitis, bimanual exam reveals normal findings, no cervical motion tenderness, no uterine tenderness, no adnexa tenderness or masses bilaterally, Vital Signs: 20:33 BP 125 / 80; Pulse 96; Resp 16; Temp 98.3; Pulse Ox 100% on R/A; Weight 66.68 kg; pf1 Height 5 ft. 7 in. ; Pain 4/10; 21:15 BP 104 / 70; Pulse 97; Pulse Ox 100% ; Pain 0/10; tm6 21:58 BP 101 / 64; Pulse 96; Pulse Ox 99% on R/A; Pain 0/10; tm6 23:01 BP 97 / 64; Pulse 94; Pulse Ox 98% on R/A; tm6 20:33 Body Mass Index 23.02 (66.68 kg, 170.18 cm) pf1 20:33 Pain Scale: Adult pf1 21:15 Pain Scale: Adult tm6 21:58 Pain Scale: Adult tm6 MDM: 20:56 Patient medically screened. ms3 22:37 Differential diagnosis: Appendicitis vs Torsion vs UTI. Data reviewed: vital signs, ms3 nurses notes, lab test result(s), radiologic studies, and as a result, I will discharge patient. I considered the following discharge prescriptions or medication management in the emergency department. Discussion of test interpretation with radiology: I had a discussion with radiology regarding a test interpretation. Discussed right hydrosalpinx with Dr Younger. He states this is likely a chronic finding. This does not appear to be an abscess.. Counseling: I had a detailed discussion with the patient and/or guardian regarding the historical points, exam findings, and any diagnostic results supporting the discharge/admit diagnosis, lab results, radiology results, the need for outpatient follow up, to return to the emergency department if symptoms worsen or persist or if there are any questions or concerns that arise at home. Special discussion: I discussed with the patient/guardian in detail that at this point there is no indication for admission to the hospital. It is understood, however, that if the symptoms persist or worsen the patient needs to return immediately for re-evaluation. ED course: Discussed labs, ultrasound, CT scan with patient. Patient to follow-up with gynecology in 2 to 3 days. Patient understands and agrees with plan. All questions were answered. Return precautions discussed include worsening symptoms, or any other concerns. 08/15 20:34 Order name: Test, Urine; Complete Time: 21:53 ms3 08/15 20:34 Order name: Urinalysis w/ reflexes; Complete Time: 21:53 ms3 08/15 20:52 Order name: CBC with Diff; Complete Time: 21:53 ms3 08/15 20:52 Order name: CMP; Complete Time: 21:53 ms3 08/15 20:52 Order name: CT Abd/Pelvis - IV Contrast Only; Complete Time: 21:53 ms3 08/15 21:55 Order name: US Pelvis Complete; Complete Time: 22:34 ms3 08/15 20:34 Order name: IV Saline Lock; Complete Time: 21:18 ms3 08/15 20:34 Order name: Labs collected and sent; Complete Time: 21:18 ms3 Administered Medications: 23:00 Drug: Rocephin (cefTRIAXone) IM 1 grams IM once Route: IM; Site: right ventrogluteal; tm6 Disposition Summary: 08/15/23 22:40 Discharge Ordered Notes: Location: Home ms3 Condition: Stable ms3 Diagnosis - UTI/ Urinary tract infection, site not specified ms3 - Hydrosalpinx ms3 Followup: ms3 - With: Liss Bang MD - When: 2 - 3 days - Reason: Recheck today's complaints Discharge Instructions: - Discharge Summary Sheet ms3 - Urinary Tract Infection, Adult ms3 Forms: - Medication Reconciliation Form ms3 - Thank You Letter ms3 - Antibiotic Education ms3 - Prescription Opioid Use ms3 - Patient Portal Instructions ms3 - Leadership Thank You Letter ms3 Prescriptions: - cefpodoxime 200 mg Oral tablet - take 1 tablet ORAL route every 12 hours with food; 14 tablet; Refills: 0, ms3 Product Selection Permitted Signatures: Dispatcher [employer] EDMS Jesus Spencer, DO ms3 Morena Pineda RN RN pf1 Viviana Milian RN RN cm10 Gloria Conley RN RN tm6
--- NOTE | 2023-08-15 22:41 | ER ---
Nurse's Notes [facility] Name: Lore Singh Age: 37 yrs Sex: Female : 1985 Arrival Date: 08/15/2023 Time: 20:27 Bed 14 Private MD: Diagnosis: UTI/ Urinary tract infection, site not specified;Hydrosalpinx Presentation: 08/15 20:33 Chief complaint: Chief complaint: Patient states: bilateral pelvic pain of 4,onset 1 pf1 week with lower back pain,onset 5 days and having burning with urination,cloudy white vaginal discharge with odor,onset 3 days. Patient stated possible foreign body to vaginal region. 20:33 Coronavirus screen: Vaccine status: Patient reports receiving the 1st dose of the Covid pf1 vaccine. Client denies travel out of the [place] in the last 14 days. At this time, the client does not indicate any symptoms associated with coronavirus-19. Ebola Screen: Patient negative for fever greater than or equal to 101.5 degrees Fahrenheit, and additional compatible Ebola Virus Disease symptoms. Initial Sepsis Screen: Does the patient meet any 2 criteria? HR > 90 bpm. No. Patient's initial sepsis screen is negative. Does the patient have a suspected source of infection? No. Patient's initial sepsis screen is negative. Risk Assessment: Do you want to hurt yourself or someone else? Patient reports no desire to harm self or others. 20:33 Method Of Arrival: Ambulatory pf1 20:33 Acuity: PRASHANTH 3 pf1 Historical: - Allergies: 20:47 No Known Allergies; pf1 - PMHx: 20:47 None; pf1 - PSHx: 20:47 tubal ligation; pf1 - Immunization history:: Adult Immunizations not up to date, Client reports receiving the 1st dose of the Covid vaccine, Moderna Last tetanus immunization: < 10 years ago Flu vaccine is not up to date. - Social history:: Smoking status: Patient reports the use of cigarette tobacco products, smokes one-half pack cigarettes per day, Patient/guardian denies using alcohol, street drugs. Screenin:15 [facility] ED Fall Risk Assessment (Adult) History of falling in the last 3 months, tm6 including since admission No falls in past 3 months (0 pts). Abuse screen: Denies threats or abuse. Denies injuries from another. Nutritional screening: No deficits noted. Tuberculosis screening: No symptoms or risk factors identified. Assessment: 21:15 General: Appears in no apparent distress. Behavior is calm, cooperative. Pain: tm6 Complains of pain in left low back, right low back and pelvis Pain began 2-3 days ago. Is intermittent. Neuro: Level of Consciousness is awake, alert, obeys commands, Oriented to person, place, time, situation. Cardiovascular: Capillary refill < 3 seconds Patient's skin is warm and dry. Respiratory: Airway is patent Respiratory effort is even, unlabored, Respiratory pattern is regular, symmetrical. GI: Abdomen is flat, non-distended. : Reports burning with urination, discharge, malodorous, white, incontinence. EENT: No signs and/or symptoms were reported regarding the EENT system. Derm: No signs and/or symptoms reported regarding the dermatologic system. Musculoskeletal: No signs and/or symptoms reported regarding the musculoskeletal system. 21:58 Reassessment: Patient appears in no apparent distress at this time. No changes from tm6 previously documented assessment. 23:01 Reassessment: Patient appears in no apparent distress at this time. No changes from tm6 previously documented assessment. Vital Signs: 20:33 BP 125 / 80; Pulse 96; Resp 16; Temp 98.3; Pulse Ox 100% on R/A; Weight 66.68 kg; pf1 Height 5 ft. 7 in. ; Pain 4/10; 21:15 BP 104 / 70; Pulse 97; Pulse Ox 100% ; Pain 0/10; tm6 21:58 BP 101 / 64; Pulse 96; Pulse Ox 99% on R/A; Pain 0/10; tm6 23:01 BP 97 / 64; Pulse 94; Pulse Ox 98% on R/A; tm6 20:33 Body Mass Index 23.02 (66.68 kg, 170.18 cm) pf1 20:33 Pain Scale: Adult pf1 21:15 Pain Scale: Adult tm6 21:58 Pain Scale: Adult tm6 ED Course: 20:31 Patient arrived in ED. gm2 20:33 Jesus Spencer DO is Attending Physician. ms3 20:33 Arm band placed on right wrist. tm6 20:36 Gloria Conley RN is Primary Nurse. tm6 20:47 Triage completed. pf1 21:15 Patient has correct armband on for positive identification. Placed in gown. Bed in low tm6 position. Call light in reach. Side rails up X2. Provided Education on: plan of care. Client placed on continuous cardiac and pulse oximetry monitoring. NIBP monitoring applied. Door closed. Noise minimized. Lights dimmed. Warm blanket given. 21:15 Assist provider with pelvic exam: Set up pelvic tray. Performed by Gloria Conley RN tm6 Patient tolerated well. Inserted saline lock: 20 gauge in right antecubital area, using aseptic technique. 21:35 CT Abd/Pelvis - IV Contrast Only In Process Unspecified. EDMS 22:17 US Pelvis Complete In Process Unspecified. EDMS 22:39 Liss Bang MD is Referral Physician. ms3 23:01 IV discontinued, intact, bleeding controlled, No redness/swelling at site. Pressure tm6 dressing applied. Administered Medications: 23:00 Drug: Rocephin (cefTRIAXone) IM 1 grams IM once Route: IM; Site: right ventrogluteal; tm6 Medication: 21:15 VIS not applicable for this client. tm6 Outcome: 22:40 Discharge ordered by . ms3 23:01 Discharged to home ambulatory, tm6 23:01 Condition: stable 23:01 Discharge instructions given to patient, Instructed on discharge instructions, follow up and referral plans. medication usage, Demonstrated understanding of instructions, follow-up care, medications, Prescriptions given X 1, 23:02 Patient left the ED. tm6 Signatures: Dispatcher [employer] EDMS Jesus Spencer DO DO ms3 Morena Pineda RN RN pf1 Yoon Mohr 2 Gloria Conley RN RN tm6 Corrections: (The following items were deleted from the chart) 20:47 20:43 Chief complaint: pf1 pf1 20:47 20:33 Acuity: PRASHANTH 4 pf1 pf1
[2023-08-15 23:51] VITALS: BP 97/64; TEMP 98.3; O2SAT 98
== END ==
LOC: ER 20:27
DX: N39.0 Urinary tract infection, site not specified (principal); N70.11 Chronic salpingitis
CPT/HCPCS: 36415; 74177; 76856; 80053; 81001; 81025; 85025; 96372; 99284; J0696; Q9967

== ENCOUNTER 2024-10-05 11:14 | Emergency (ER) | payer SELFPAY ==
[2024-10-05 12:28] LABS: Specific Gravity 1.013 (1.005-1.030)
[2024-10-05 12:32] LABS: Absolute Basophils 0.1 K/uL (0-0.5); Absolute Eosinophils 0.1 K/uL (0-0.5); Absolute Lymphocytes (CBC) 2.2 K/uL (0.7-4.9); Absolute Monocytes 0.9 K/uL (0.1-1.3); Absolute Neutrophil 11.9 K/uL (1.8-8.0); Basophils % 0.3 % (0-1.3); Eosinophils % 0.7 % (0-4.4); Hematocrit 34.8 % (36.0-45.0); Hemoglobin 11.9 g/dL (12.0-15.0); Lymphocytes % 14.4 % (15.3-44.8); MCH 32.4 pg (27.0-35.0); MCHC 34.3 g/dL (32.0-36.0); MCV 94.4 fL (80-100); MPV 8.8 fL (7.6-11.3); Monocytes % 5.8 % (3.3-12.3); Neutrophils % 78.8 % (41.7-73.7); Platelets 253 thou/uL (152-406); RBC Red Blood Cell Count 3.69 M/uL (3.86-4.86); Red Cell Distribution Width 13.4 % (12.1-15.2)
[2024-10-05] MEDS ORDERED: KETOROLAC 30 MG/ML INJ ONE (12:36)
[2024-10-05 12:41] LABS: Anion Gap 5.7 mEq/L (5.0-15.0); Potassium 3.7 mEq/L (3.5-5.1)
--- NOTE | 2024-10-05 12:57 | RAD REPORT ---
EXAM: CT CHEST WITH CONTRAST CLINICAL INDICATION: R midaxillary mid thorax swelling/mass TECHNIQUE: Routine CT scan of the chest with intravenous contrast. One or more of the following dose reduction techniques were used: Automated exposure control, adjustment of the mA and/or kV according to patient size, and/or iterative reconstruction. Unless otherwise specified, incidental fi ndings do not require dedicated imaging follow-up. COMPARISON: No prior exam. FINDINGS: LUNGS: Airways are clear. No evidence of airspace or interstitial process. No nodules. PLEURA: No pleural effusion. No pneumothorax. MEDIASTINUM AND LYMPH NODES: No mediastinal mass or fluid collection. Normal size mediastinal, hilar, and axillary lymph nodes. OSSEOUS STRUCTURES AND CHEST WALL: Intact. UPPER ABDOMEN: No significant abnormalities. IMPRESSION: No acute or concerning intrathoracic findings.
--- NOTE | 2024-10-05 13:22 | EDPHYS ---
Physician Documentation [facility] Name: Lore Singh Age: 38 yrs Sex: Female : 1985 Arrival Date: 10/05/2024 Time: 11:14 Bed 11 Private MD: ED Physician Cameron Dave HPI: 10/05 11:38 This 38 yrs old Female presents to ER via Ambulatory with complaints of Lump ec2 on Back. 11:38 Patient arrives today for evaluation of a bump to the right mid thorax. Patient reports ec2 that she had noticed swelling there for the past month. Reports increase in possible size and discomfort. No falls injuries or trauma.. Historical: - Allergies: 11:22 No Known Allergies; aa5 - Home Meds: 11:22 None [Active]; aa5 - PMHx: 11:22 None; aa5 - PSHx: 11:22 tubal ligation; aa5 - Immunization history:: Adult Immunizations unknown. - Infectious Disease History:: Denies. - Social history:: Smoking status: Reported history of juuling and/or vaping. ROS: 11:39 Constitutional: as per hpi ec2 Exam: 11:39 Constitutional: GEN: NAD Head: atraumatic Eyes: EOMI Ears: External ears are ec2 normal. CV: regular rate LUNGS: no respiratory distress ABD: non-distended SKIN: no evidence of rashes MSK: Right mid thorax with induration, fluctuance, no erythema, no warmth Vital Signs: 11:22 BP 116 / 81; Pulse 96; Resp 16 S; Temp 98(O); Pulse Ox 100% on R/A; Weight 65.77 kg aa5 (R); Height 5 ft. 7 in. (R); 12:42 BP 107 / 81; Pulse 88; Resp 18 S; Pulse Ox 100% on R/A; aa5 11:22 Body Mass Index 22.71 (65.77 kg, 170.18 cm) aa5 MDM: 11:29 Medical Screening Exam initiated ec2 11:39 Data reviewed: vital signs, nurses notes. ED course: Patient arrives today for right ec2 mid back pain. Examination is revealing for skin findings above. Suspect lipoma however given the duration And reported evolution, will obtain CT scan of the chest to evaluate for other process such as mass, doubt infection. 13:22 ED course: Nonacute CT scan. Lab work shows leukocytosis, patient without infectious ec2 process. Will discharge home have the patient follow-up with PCP.. 10/05 11:35 Order name: CBC with Diff; Complete Time: 12:33 ec2 10/05 11:35 Order name: BMP; Complete Time: 12:42 ec2 10/05 11:35 Order name: Test, Urine; Complete Time: 12:33 ec2 10/05 11:35 Order name: Chest W/ Con CT; Complete Time: 13:03 ec2 10/05 11:35 Order name: IV; Complete Time: 12:23 ec2 Administered Medications: 12:42 Drug: Ketorolac IVP 15 mg IVP once Route: IVP; Site: right antecubital; aa5 12:50 Follow up: Response: No adverse reaction aa5 Disposition Summary: 10/05/24 13:22 Discharge Ordered Notes: Location: Home ec2 Condition: Stable ec2 Diagnosis - Mid Back Pain ec2 Followup: ec2 - With: Private Physician - When: - Reason: Re-evaluation by your physician Discharge Instructions: - Discharge Summary Sheet ec2 - Lipoma ec2 Forms: - Medication Reconciliation Form ec2 - Antibiotic Education ec2 - Prescription Opioid Use ec2 - Patient Portal Instructions ec2 - Leadership Thank You Letter ec2 Signatures: Dispatcher [employer] Yamile Daly RN RN aa5 Cameron Dave MD MD ec2 Corrections: (The following items were deleted from the chart) 11:35 11:35 CBC+H.LAB.BRZ ordered. EDMS EDMS 11:35 11:35 BASIC METABOLIC PANEL+C.LAB.BRZ ordered. EDMS EDMS 11:35 11:35 Test, Urine+UC.LAB.BRZ ordered. EDMS EDMS 11:35 11:35 Thorax W/ Con+CT.RAD.BRZ ordered. EDMS EDMS
--- NOTE | 2024-10-05 13:22 | ER ---
Nurse's Notes [facility] Name: Lore Singh Age: 38 yrs Sex: Female : 1985 Arrival Date: 10/05/2024 Time: 11:14 Bed 11 Private MD: Diagnosis: Mid Back Pain Presentation: 10/05 11:22 Chief complaint: Patient states: "I've had a lump on my back for a while now but today aa5 it's making my back hurt and I am having trouble taking a deep breath". Coronavirus screen: At this time, the client does not indicate any symptoms associated with coronavirus-19. Ebola Screen: Patient denies travel to an Ebola-affected area in the 21 days before illness onset. Initial Sepsis Screen: Does the patient meet any 2 criteria? HR > 90 bpm. Does the patient have a suspected source of infection? No. Patient's initial sepsis screen is negative. Risk Assessment: Do you want to hurt yourself or someone else? Patient reports no desire to harm self or others. Onset of symptoms was October 05, 2024. 11:22 Acuity: PRASHANTH 3 aa5 11:22 Method Of Arrival: Ambulatory aa5 Historical: - Allergies: 11:22 No Known Allergies; aa5 - Home Meds: 11:22 None [Active]; aa5 - PMHx: 11:22 None; aa5 - PSHx: 11:22 tubal ligation; aa5 - Immunization history:: Adult Immunizations unknown. - Infectious Disease History:: Denies. - Social history:: Smoking status: Reported history of juuling and/or vaping. Screenin:05 [facility] ED Fall Risk Assessment (Adult) History of falling in the last 3 months, aa5 including since admission No falls in past 3 months (0 pts) Confusion or Disorientation No (0 pts) Intoxicated or Sedated No (0 pts) Impaired Gait No (0 pts) Mobility Assist Device Used No (0 pt) Altered Elimination No (0 pt) Score/Fall Risk Level 0 - 2 = Low Risk Oriented to surroundings, Maintained a safe environment, Educated pt \\T\\ family on fall prevention, incl call for assistance when getting out of bed, Assessed \\T\\ reinforced patient's understanding of fall precautions. Abuse screen: Denies threats or abuse. Nutritional screening: No deficits noted. Tuberculosis screening: No symptoms or risk factors identified. Assessment: 12:05 General: Appears uncomfortable, Behavior is calm, cooperative. Pain: Complains of pain aa5 in right flank Pain currently is 6 out of 10 on a pain scale. Quality of pain is described as sharp, Is intermittent. Neuro: Level of Consciousness is awake, alert, obeys commands, Oriented to person, place, time, situation. Cardiovascular: Patient's skin is warm and dry. Respiratory: Airway is patent Respiratory effort is even, unlabored, Respiratory pattern is regular, symmetrical. GI: No signs and/or symptoms were reported involving the gastrointestinal system. : No signs and/or symptoms were reported regarding the genitourinary system. EENT: No signs and/or symptoms were reported regarding the EENT system. Derm: Skin is pink, warm \\T\\ dry. Swollen area noted to right flank. Musculoskeletal: Range of motion: intact in all extremities. 12:23 Reassessment: Pt to CT . aa5 12:42 Reassessment: Patient is alert, oriented x 3, equal unlabored respirations, skin aa5 warm/dry/pink. Warm blanket provided for comfort. . 13:40 Reassessment: Patient is alert, oriented x 3, equal unlabored respirations, skin aa5 warm/dry/pink. Vital Signs: 11:22 BP 116 / 81; Pulse 96; Resp 16 S; Temp 98(O); Pulse Ox 100% on R/A; Weight 65.77 kg aa5 (R); Height 5 ft. 7 in. (R); 12:42 BP 107 / 81; Pulse 88; Resp 18 S; Pulse Ox 100% on R/A; aa5 11:22 Body Mass Index 22.71 (65.77 kg, 170.18 cm) aa5 ED Course: 11:18 Patient arrived in ED. cj3 11:19 Cameron Dave MD is Attending Physician. ec2 11:22 Arm band placed on. aa5 11:24 Triage completed. aa5 12:05 Patient has correct armband on for positive identification. Bed in low position. Call aa5 light in reach. Side rails up X 1. Pulse ox on. NIBP on. 12:20 Initial lab(s) drawn, by me, sent to lab. Inserted saline lock: 20 gauge in right aa5 antecubital area, using aseptic technique. Blood collected. Flushed with 10 mL NS. 12:23 Yamile Matta, RN is Primary Nurse. aa5 12:27 Chest W/ Con CT In Process Unspecified. EDMS 13:40 No provider procedures requiring assistance completed. IV discontinued, intact, aa5 bleeding controlled, No redness/swelling at site. Pressure dressing applied. Administered Medications: 12:42 Drug: Ketorolac IVP 15 mg IVP once Route: IVP; Site: right antecubital; aa5 12:50 Follow up: Response: No adverse reaction aa5 Medication: 12:05 VIS not applicable for this client. aa5 Outcome: 13:22 Discharge ordered by . ec2 13:40 Discharged to home ambulatory, aa5 13:40 Condition: stable aa5 13:40 Discharge instructions given to patient, Instructed on discharge instructions, follow up and referral plans. Demonstrated understanding of instructions, follow-up care, 13:54 Patient left the ED. aa5 Signatures: Dispatcher [employer] EDNY Yamile Matta RN RN aa5 Cameron Dave MD MD ec2 Syl Escalante cj3 Corrections: (The following items were deleted from the chart) 17:33 13:20 IV discontinued, intact, bleeding controlled, No redness/swelling at site. aa5 Pressure dressing applied, aa5 17:33 13:20 No provider procedures requiring assistance completed. aa5 aa5
[2024-10-05 14:06] VITALS: TEMP 98; O2SAT 100
[2024-10-05 14:16] VITALS: BP 107/81
== END 2024-10-05 13:54 | disposition home or self-care (01) ==
LOC: ER 11:14
DX: M54.9 Dorsalgia, unspecified (principal); R22.2 Localized swelling, mass and lump, trunk
CPT/HCPCS: 36415; 71260; 80048; 81025; 85025; 96374; 99284